=== PATIENT | female | born 1995 | race American Indian/Alaskan Native ===

== ENCOUNTER 2017-10-23 11:14 | Emergency (ER) | payer MEDICAID ==
[2017-10-23 11:46] VITALS: BP 117/51
[2017-10-23 12:41] LABS: HCG Qualitative,Urine Positive (Negative)
[2017-10-23 12:44] LABS: Bilirubin,Urine NEG (Negative); Blood,Urine NEG (Negative); Color,Urine Amber (Yellow); Mucus,Urine 3+ /HPF
--- NOTE | 2017-10-23 15:00 | Emergency Department Report ---
Blank Doc - Documentation Documentation: Patient is a 22-year-old Marshallese female who is greater than 1 month late with her menses. was confirmed here. Patient has 2-3 days of left lower quadrant discomfort with mild spotting. Patient denies dysuria. Patient also denies vaginal discharge. Patient will have a Quant ABO Rh and ultrasound to confirm is in proper location.
--- NOTE | 2017-10-23 17:17 | Emergency Department Report ---
ED Female HPI - General Chief complaint: Abdominal Pain Stated complaint: FLANK PAIN Time Seen by Provider: 10/23/17 14:53 Source: patient Mode of arrival: Ambulatory Limitations: No Limitations - History of Present Illness Initial comments: This is a 22 y.o. female that presents with low abdominal pain radiating to left flank for 1 week that increased over pass 2 days. Patient states I think I' m because "I'm having nausea with abdominal pain". LMP 09/08/2017, A0. History of recurrent urinary tract infections and not sure if currently having one. She is having left lower quadrant intermittent cramping for 2 days. Denies vaginal bleeding, frequency, urgency, discharge, dizziness, chest pain, or SOB. MD Complaint: pelvic pain (LLQ) -: week(s) (1 week, increased over past 2 days) Location: LLQ Radiation: L flank Severity: moderate Severity scale (0 -10): 5 Quality: cramping Consistency: intermittent Improves with: none Worsens with: none Are you Now?: Yes (confirmed here today) Last Menstrual Period: 09/08/17 EDC: 06/15/18 Associated Symptoms: denies other symptoms - Related Data Sexually active: Yes : 3 Para: 2 A: 0 Previous Rx's Medication Instructions Recorded Last Taken Type Ondansetron [Zofran Odt] 4 mg PO TID #15 tab.rapdis 10/23/17 Unknown Rx Allergies Allergy/AdvReac Type Severity Reaction Status Date / Time No Known Allergies Allergy Unverified 10/23/17 11:43 ED Review of Systems ROS: Stated complaint: FLANK PAIN Other details as noted in HPI Constitutional: denies: chills, fever Respiratory: denies: cough, shortness of breath, wheezing Cardiovascular: denies: chest pain, palpitations Gastrointestinal: abdominal pain (LLQ), nausea. denies: vomiting, diarrhea, constipation Genitourinary: denies: urgency, dysuria, frequency, hematuria, discharge Musculoskeletal: back pain (left flank pain) Neurological: denies: headache, weakness, paresthesias Psychiatric: denies: anxiety, depression ED Past Medical Hx - Past Medical History Previous Medical History?: Yes Hx Hypertension: Yes - Surgical History Past Surgical History?: No - Social History Smoking Status: Smoker, Current Status Unknown Substance Use Type: None - Medications Home Medications: Home Medications Medication Instructions Recorded Confirmed Last Taken Type Ondansetron [Zofran Odt] 4 mg PO TID #15 tab.rapdis 10/23/17 Unknown Rx ED Physical Exam - General Limitations: No Limitations General appearance: alert, in no apparent distress - Respiratory Respiratory exam: Present: normal lung sounds bilaterally. Absent: respiratory distress, wheezes, rales, rhonchi - Cardiovascular Cardiovascular Exam: Present: regular rate, normal rhythm, normal heart sounds. Absent: systolic murmur, diastolic murmur, rubs, gallop - GI/Abdominal GI/Abdominal exam: Present: soft, tenderness (RLQ), normal bowel sounds. Absent : distended, guarding, rebound, rigid, organomegaly, mass - Back Exam Back exam: Present: normal inspection, CVA tenderness (L). Absent: tenderness, CVA tenderness (R), muscle spasm, rash noted - Neurological Exam Neurological exam: Present: alert, oriented X3, normal gait - Psychiatric Psychiatric exam: Present: normal affect, normal mood - Skin Skin exam: Present: warm, dry, intact, normal color. Absent: rash ED Course Vital Signs 10/23/17 11:43 Temperature 98.4 F Pulse Rate 53 L Respiratory 16 Rate Blood Pressure 117/51 O2 Sat by Pulse 99 Oximetry ED Medical Decision Making - Radiology Data Radiology results: report reviewed OB US: Viable intrauterine with a menstrual age of 6 weeks 2 days. - Medical Decision Making This is a 22 y.o. Female presents with low abdominal pain, left flank pain, and nausea for 1 week that increase x 2 days. Patient was evaluated by me and Dr Khan. LMP 09/08/2017. A0. She has not established [facility]. Obtained HCG quant, and UA. HCG 31114. and OB US obtained and read by radiologist. Viable intrauterine with a menstrual age of 6 weeks 2 days. Patient informed of results and not sure if she wants to keep . Referrals to OB /[facility] in 2-3 days. Discharged home stable with zofran for nausea. Critical care attestation.: If time is entered above; I have spent that time in minutes in the direct care of this critically ill patient, excluding procedure time. ED Disposition Clinical Impression: Left flank pain, confirmed by positive blood test, Lower abdominal pain, Morning sickness Disposition: TO HOME OR SELFCARE Is pt being admited?: No Does the pt Need Aspirin: No Condition: Stable Instructions: Abdominal Pain (ED), Morning Sickness (ED) Additional Instructions: Follow up with [facility] from referrals in 24-48 hours. Return to ER if vaginal bleeding increase and pain is increased, or dizziness. Prescriptions: Ondansetron [Zofran Odt] 4 mg PO TID #15 tab.rapdis Referrals: SARAH BRAN MD [Staff Physician] - 3-5 Days [facility] [Provider Group] - 3-5 Days Forms: Work/School Release Form(ED) Time of Disposition: 17:46 Print Language: MALAYSIAN
--- NOTE | 2017-10-23 17:24 | Ultrasound Report ---
FINAL REPORT PROCEDURE: Transabdominal obstetrical ultrasound. TECHNIQUE: Real-time transabdominal sonography of the uterus, placenta, amniotic fluid, adnexa, and fetus was performed with image documentation. Measurements were obtained to determine age/size. M-mode Doppler was used to document heartbeat. CPT 30588 HISTORY: with left lower quadrant pain, rule out ectopic. COMPARISON: No prior studies are available for comparison. FINDINGS: The uterus measures 9.6 centimeters x 4.9 centimeters x 6.3 centimeters. The myometrium appears normal. There is an intrauterine gestational sac. A pole is visible. Cardiac activity is documented at 117 beats per minute. The crown-rump length measurement is 5.3 millimeters. This indicates a menstrual age of 6 weeks 2 days. The estimated date of confinement is 06/16/2018. Both ovaries appear normal. IMPRESSION: Viable intrauterine with a menstrual age of 6 weeks 2 days.
--- NOTE | 2017-10-23 17:25 | Ultrasound Report ---
FINAL REPORT PROCEDURE: Transvaginal obstetrical ultrasound. TECHNIQUE: Real-time transvaginal sonography of the uterus, placenta, amniotic fluid, adnexa, and fetus was performed with image documentation. Measurements were obtained to determine age/size. M-mode Doppler was used to document heartbeat. CPT 13591 HISTORY: with left lower quadrant pain. Rule out ectopic. COMPARISON: No prior studies are available for comparison. FINDINGS: There is an intrauterine gestational sac. A yolk sac and pole are visible. The crown-rump length measurement is 5.3 millimeters. This indicates a menstrual age of 6 weeks 2 days. Estimated date of confinement is 06/16/2018. Cardiac activity is documented at 116 beats per minute. Both ovaries appear normal in size. There may be a corpus luteum in the left ovary. IMPRESSION: Viable intrauterine with a menstrual age of 6 weeks 2 days.
== END 2017-10-23 18:00 | disposition home or self-care (01) ==
LOC: ED 11:14
DX: O26.891 Other specified pregnancy related conditions, first trimester (principal); R10.30 Lower abdominal pain, unspecified; Z3A.01 Less than 8 weeks gestation of pregnancy
CPT/HCPCS: 36415; 76801; 76817; 81001; 81025; 84702; 86900; 86901

== ENCOUNTER 2018-07-25 23:20 | Emergency (ER) | payer BC, MEDICAID ==
[2018-07-26 06:11] VITALS: BP 114/72
[2018-07-26] MEDS ORDERED: TRIPLE ANTIBIOTIC TP ONE ×2 (07:41→07:43)
[2018-07-26] MEDS ORDERED: BOOSTRIX IM ONE ×2 (07:41→09:00)
--- NOTE | 2018-07-26 07:49 | Emergency Department Report ---
- General Chief Complaint: Wound/Laceration Stated Complaint: BIG FLESH CUT UNDER BUTT CHEEKS Time Seen by Provider: 07/26/18 07:42 Source: patient Mode of arrival: Ambulatory Limitations: No Limitations - History of Present Illness -: hour(s) (6) Location: other (cut buttocks on [place]ten[place] of car) Extremity Location: Left: Lower Leg Place: home Patient Tetanus UTD: Yes Context: accidental Associated Symptoms: pain - Related Data Previous Rx's Medication Instructions Recorded Last Taken Type Ondansetron [Zofran Odt] 4 mg PO TID #15 tab.rapdis 10/23/17 Unknown Rx Chlorhexidine Gluconate [Hibiclens] 10 ml TP BID #240 liquid 07/26/18 Unknown Rx Mupirocin [Bactroban 2%] 15 applic TP TID #15 gm 07/26/18 Unknown Rx cephALEXin [Keflex] 500 mg PO Q6HR #40 capsule 07/26/18 Unknown Rx Allergies Allergy/AdvReac Type Severity Reaction Status Date / Time No Known Allergies Allergy Unverified 10/23/17 11:43 ED Review of Systems ROS: Stated complaint: BIG FLESH CUT UNDER BUTT CHEEKS Other details as noted in HPI Constitutional: denies: chills, fever Eyes: denies: eye pain, eye discharge, vision change ENT: denies: ear pain, throat pain Respiratory: denies: cough, shortness of breath, wheezing Cardiovascular: denies: chest pain, palpitations Endocrine: no symptoms reported Gastrointestinal: denies: abdominal pain, nausea, diarrhea Genitourinary: denies: urgency, dysuria, discharge Musculoskeletal: denies: back pain, joint swelling, arthralgia Skin: denies: rash, lesions Neurological: denies: headache, weakness, paresthesias Psychiatric: denies: anxiety, depression Hematological/Lymphatic: denies: easy bleeding, easy bruising ED Past Medical Hx - Past Medical History Previous Medical History?: Yes Hx Hypertension: Yes - Surgical History Past Surgical History?: No - Social History Smoking Status: Never Smoker Substance Use Type: None - Medications Home Medications: Home Medications Medication Instructions Recorded Confirmed Last Taken Type Ondansetron [Zofran Odt] 4 mg PO TID #15 tab.rapdis 10/23/17 Unknown Rx Chlorhexidine Gluconate [Hibiclens] 10 ml TP BID #240 liquid 07/26/18 Unknown Rx Mupirocin [Bactroban 2%] 15 applic TP TID #15 gm 07/26/18 Unknown Rx cephALEXin [Keflex] 500 mg PO Q6HR #40 capsule 07/26/18 Unknown Rx ED Physical Exam - General Limitations: No Limitations General appearance: alert, in no apparent distress - Head Head exam: Present: atraumatic, normocephalic - Eye Eye exam: Present: normal appearance, PERRL, EOMI - ENT ENT exam: Present: mucous membranes moist - Neck Neck exam: Present: normal inspection - Respiratory Respiratory exam: Present: normal lung sounds bilaterally. Absent: respiratory distress - Cardiovascular Cardiovascular Exam: Present: regular rate, normal rhythm. Absent: systolic murmur, diastolic murmur, rubs, gallop - GI/Abdominal GI/Abdominal exam: Present: soft, normal bowel sounds - Extremities Exam Extremities exam: Present: normal inspection - Back Exam Back exam: Present: normal inspection - Neurological Exam Neurological exam: Present: alert, oriented X3 - Psychiatric Psychiatric exam: Present: normal affect, normal mood - Skin Skin exam: Present: warm, dry, normal color, other (skin tear1.5 cm wide. no active bleeding. linear fashion. ). Absent: rash ED Course Vital Signs 07/25/18 07/26/18 07/26/18 23:45 06:10 06:20 Temperature 97.9 F 97.6 F Pulse Rate 91 H 58 L Respiratory 20 18 20 Rate Blood Pressure 107/62 Blood Pressure 114/72 [Right] O2 Sat by Pulse 99 Oximetry Critical care attestation.: If time is entered above; I have spent that time in minutes in the direct care of this critically ill patient, excluding procedure time. ED Disposition Clinical Impression: Avulsion, skin Disposition: DC-01 TO HOME OR SELFCARE Is pt being admited?: No Does the pt Need Aspirin: No Condition: Stable Instructions: Acute Wound Care (ED) Referrals: PRIMARY CARE [Primary Care Provider] - 3-5 Days [facility] [Provider Group] - 3-5 Days
[2018-07-26] MEDS ORDERED: TENIVAC IM ONE (08:43)
== END 2018-07-26 08:10 | disposition home or self-care (01) ==
LOC: ED 23:20
DX: S31.829A Unspecified open wound of left buttock, initial encounter (principal); S31.819A Unspecified open wound of right buttock, initial encounter; I10 Essential (primary) hypertension; X58.XXXA Exposure to other specified factors, initial encounter; Y93.89 Activity, other specified; Y92.89 Other specified places as the place of occurrence of the external cause; Y99.8 Other external cause status
CPT/HCPCS: 90714; 90715; 99282; A6250